=== PATIENT | female | born 1935 | race Caucasian/White ===

== ENCOUNTER 2019-04-28 22:17 | Inpatient (IN) | payer MEDICARE, SELFPAY ==
[2019-04-28] MEDS ORDERED: Ketorolac Tromethamine 30 MG/ML VIAL ONE (22:33)
[2019-04-28] MEDS ORDERED: Potassium Chloride 20 MEQ TAB ONE (22:37)
[2019-04-28] MEDS ORDERED: Clindamycin/D5W 900 MG in Premix Bag 1 BAG IVPB SCH (23:00)
[2019-04-28 23:31] LABS: Lactic Acid 1.3 mmol/L (0.5-2.2)
[2019-04-28] MEDS ORDERED: Ondansetron PF 4 MG/2 ML Vial IVP PRN (23:42)
[2019-04-28] MEDS ORDERED: Ondansetron ODT 4 MG TAB PO PRN (23:42)
[2019-04-29 00:18] VITALS: BMI 24.1
[2019-04-29] MEDS: Acetaminophen 325 MG TAB PO PRN ×2 (00:32→09:19)
[2019-04-29] MEDS: cefTRIAXone\\ROCEPHIN 1 GM in Sodium Chloride 0.9% 100 ML IVPB SCH (00:48)
[2019-04-29 05:44] LABS: #Lymphocytes 1.3 thou/uL (1.20-3.40); #Neutrophils 11.8 thou/uL (1.40-6.50); %Basophils 0.3 % (0.0-1.0); %Eosinophils 0.2 % (0.0-10.0); %Lymphocytes 9.2 % (21.0-51.0); %Monocytes 6.9 % (0.0-10.0); %Neutrophils 83.4 % (42.0-75.0); Hemoglobin 11.4 g/dL (12.0-16.0); Mean Corpuscular HGB CONC 34.3 g/dL (32.0-36.0); Mean Corpuscular Hemoglobin 33.1 pg (27.0-31.0); Mean Corpuscular Volume 96.6 fL (78.0-98.0); Mean Platelet Volume 8.1 fL (7.4-10.4); Platelet Count 165 thou/uL (130-400); RBC Distribution Width 11.5 % (11.5-14.5); Red Blood Cell (RBC) Count 3.45 mill/uL (4.20-5.40); White Blood Cell (WBC) Count 14.2 thou/uL (4.8-10.8)
[2019-04-29 06:05] LABS: Anion Gap 11 mmol/L (10-20); BUN (Urea Nitrogen) 13 mg/dL (9.8-20.1); Calc. Creatinine Clearance 59 mL/min (70-130); Calcium 8.4 mg/dL (7.8-10.44); Carbon Dioxide 22 mmol/L (23-31); Chloride 109 mmol/L (98-107); Estimated GFR-MDRD 81; Glucose 131 mg/dL (83-110); Potassium 4.1 mmol/L (3.5-5.1); Sodium 138 mmol/L (136-145)
--- NOTE | 2019-04-29 06:51 | HP ---
PRIMARY CARE DOCTOR: Alma Streeter MD CODE STATUS: Full code. CHIEF COMPLAINT: Fever. HISTORY OF PRESENT ILLNESS: 83 years old female patient with past medical history of hypothyroidism, endocrine disease, and hypertension, came to the hospital after having fever that started yesterday associated with right side of the face swelling and numbness with no clear triggers, no alleviating factors. Symptom has been present for the past few days, became severe, also associated with an episode of change in mental status and confusion that has self-resolved while in the ER. The symptoms were severe. PAST MEDICAL HISTORY: The patient has a history of hypothyroidism and hypertension. PAST SURGICAL HISTORY: No surgical history. PSYCHIATRIC HISTORY: Includes anxiety and depression. SOCIAL HISTORY: No alcohol, no drugs, no smoking history. FAMILY HISTORY: Reviewed, noncontributory for current presentation. ALLERGIES: NO ALLERGIES REPORTED. REPORTED MEDICATIONS: Please see medication reconciliation for details. PHYSICAL EXAMINATION: VITAL SIGNS: On presentation; blood pressure 150/87, heart rate 107, respiratory rate was 18, temperature 99.8. At some point, the patient had fever. GENERAL APPEARANCE: The patient is alert and oriented, in no acute distress. HEENT: Eyes; normal conjunctivae. Moist oral mucosa. The patient has right-sided swelling of the face and also extending to the submandibular area on the right side. RESPIRATORY: Bilateral air entry. No rales. No wheezes. Symmetric expansion. CARDIOVASCULAR: Normal rate. Regular rhythm. No murmurs. No gallops. No edema. ABDOMEN: Soft. Normal bowel sounds. MUSCULOSKELETAL: Baseline range of motion and strength. SKIN: Warm and intact. No pallor. No rash. No redness. Capillary refill seems to be intact. NEURO: No evidence of any new focal weakness. Cranial nerves seems to be intact. PSYCH: The patient is in good mood. No anxiety. Optimal judgment. DIAGNOSTIC STUDIES: Head CT was done. No acute abnormalities. CT neck with contrast; right-sided facial fat stranding. No evidence of abscess. Chest x-ray was done; the patient has small bilateral pleural effusions, mild cardiomegaly. LABORATORY DATA: Reviewed. The patient has a white count 14.2, hemoglobin 11.4, MCV 96.6. Chemistry; sodium 138, potassium 4.1, chloride 109, carbon dioxide 22, anion gap 11, creatinine 0.69, GFR 81, glucose 131, calcium 9.4. ASSESSMENT AND PLAN: The patient will be placed in the hospital with following medical problems. 1. Sepsis secondary to the patient's cellulitis. The patient has tachycardia and tachypnea and also reportedly fever with leukocytosis. The source is the patient's cellulitis. The patient has been started on broad-spectrum antibiotics and we will continue for now. 2. Hypothyroidism. Continue hormone replacement. 3. Uncontrolled hypertension, systolic blood pressure 150. Reconcile home medications and adjust treatment as needed. 4. Deep venous thrombosis prophylaxis. Job ID: [id number]
[2019-04-29] MEDS ORDERED: Prevnar 13-Val Conj/PF 0.5 ML SYRINGE IM ONE (09:00)
[2019-04-29] MEDS: Enoxaparin Sodium 40 MG/0.4 ML SYRINGE SC SCH ×2 (09:00→09:14)
[2019-04-29] MEDS: Clindamycin/D5W 600 MG in Premix Bag 1 BAG IVPB SCH ×3 (09:01→22:50)
[2019-04-29] MEDS ORDERED: Gadobenate Dimeglumine 529 MG/1 ML (20ML VIAL) ONE (13:07)
[2019-04-29] MEDS ORDERED: Diazepam 2 MG TAB PO PRN (14:27)
[2019-04-29] MEDS: Sodium Chloride 0.9% 1,000 ML IV SCH (15:08)
--- NOTE | 2019-04-29 16:52 | MRI ---
EXAM: MRI of the brain without and with contrast HISTORY: Swelling in the right temporal region since Monday. COMPARISON: None TECHNIQUE: Multiplanar multisequence MR images were obtained of the brain without and with IV contras t. FINDINGS: Scattered foci of high T2/FLAIR signal in the subcortical and periventricular white matter are likely secondary to small vessel ischemic disease. CSF signal intensity in the anterior aspect of the right middle cranial fossa may represent an arachnoid cyst. No restricted diffusion. No abnormal enhancement. No hydronephrosis. No intracranial hemorrhage. The expected flow voids are present. Corpus callosum, pituitary, and craniocervical junction are within normal limits. There is diffuse soft tissue swelling in the right temporal scalp without focal fluid collection or f ocal mass. The calvarium is unremarkable. The paranasal sinuses and mastoid air cells are well aerated. IMPRESSION: 1. There is soft tissue swelling of the right temporal scalp without focal lesion or underlying greg rial abnormality 2. Right middle cranial fossa arachnoid cyst.
[2019-04-29] MEDS: Lisinopril 20 MG TAB PO SCH (20:16)
[2019-04-29] MEDS ORDERED: Vancomycin HCl 1 GM in Premix Bag 1 BAG IVPB SCH (23:00)
[2019-04-30] MEDS: cefTRIAXone\\ROCEPHIN 1 GM in Sodium Chloride 0.9% 100 ML IVPB SCH (01:20)
[2019-04-30] MEDS: Sodium Chloride 0.9% 1,000 ML IV SCH (01:25)
[2019-04-30] MEDS: Acetaminophen 325 MG TAB PO PRN (05:59)
[2019-04-30] MEDS: Enoxaparin Sodium 40 MG/0.4 ML SYRINGE SC SCH ×2 (08:27→08:34)
[2019-04-30] MEDS: Clindamycin/D5W 600 MG in Premix Bag 1 BAG IVPB SCH (08:28)
[2019-04-30] MEDS: Lisinopril 20 MG TAB PO SCH (08:28)
[2019-04-30 08:39] LABS: #Eosinphils 0.1 thou/uL (0.0-0.7); #Lymphocytes 1.8 thou/uL (1.20-3.40); #Monocytes 0.9 thou/uL (0.11-0.59); #Neutrophils 6.8 thou/uL (1.40-6.50); %Basophils 0.5 % (0.0-1.0); %Eosinophils 1.1 % (0.0-10.0); %Lymphocytes 18.3 % (21.0-51.0); %Monocytes 9.4 % (0.0-10.0); %Neutrophils 70.8 % (42.0-75.0); Hemoglobin 11.6 g/dL (12.0-16.0); Mean Corpuscular HGB CONC 34.2 g/dL (32.0-36.0); Mean Corpuscular Hemoglobin 32.7 pg (27.0-31.0); Mean Corpuscular Volume 95.7 fL (78.0-98.0); Mean Platelet Volume 7.5 fL (7.4-10.4); Platelet Count 184 thou/uL (130-400); RBC Distribution Width 11.3 % (11.5-14.5); Red Blood Cell (RBC) Count 3.55 mill/uL (4.20-5.40); White Blood Cell (WBC) Count 9.7 thou/uL (4.8-10.8)
[2019-04-30 09:09] LABS: Anion Gap 11 mmol/L (10-20); BUN (Urea Nitrogen) 10 mg/dL (9.8-20.1); Calc. Creatinine Clearance 67 mL/min (70-130); Calcium 8.3 mg/dL (7.8-10.44); Carbon Dioxide 20 mmol/L (23-31); Chloride 107 mmol/L (98-107); Estimated GFR-MDRD Greater than 90; Glucose 98 mg/dL (83-110); Potassium 3.4 mmol/L (3.5-5.1); Sodium 135 mmol/L (136-145)
[2019-04-30 11:33] VITALS: BP 150/84; TEMP 98.3
--- NOTE | 2019-05-01 00:05 | DIS ---
DATE OF ADMISSION: 04/28/2019 DATE OF DISCHARGE: 04/30/2019 REASON FOR HOSPITALIZATION: Sepsis with right-sided cellulitis of the face. SIGNIFICANT FINDINGS: The patient was found to have cellulitis and sepsis. PROCEDURES PERFORMED/TREATMENTS RENDERED: The patient was admitted to medical floor/surgical unit for close observation. The patient received IV antibiotics, IV fluids, and had blood cultures and urine cultures taken. With maximum medical therapy, the patient's white blood cell count normalized and she returned to her normal state of health. CONDITION ON DISCHARGE: Stable. SPECIFIC INSTRUCTIONS FOR THE PATIENT/FAMILY: 1. The patient is recommended to take all oral antibiotics as directed. 2. The patient is recommended to take probiotic therapy. 3. The patient is recommended to continue all other home medications as directed by primary care physician. 4. The patient is recommended to follow up with primary care physician in the next 5 to 7 days for further plan of care. 5. The patient is to follow up with primary care physician on right side of the face soft tissue swelling over the temporal scalp area that is negative for focal lesion or underlying abscesses. 6. The patient is recommended to return to acute care hospital immediately if signs or symptoms return, worsen, or any other new symptoms occur. DISCHARGE MEDICATIONS: 1. Doxycycline 100 mg one tablet p.o. b.i.d. 2. Lactobacillus one tablet p.o. t.i.d. 3. Amitriptyline 75 mg one tablet p.o. daily. 4. Lisinopril 20 mg one tablet p.o. b.i.d. HOSPITAL COURSE: Ms. Gambino is a very pleasant 83-year-old white female, who was transferred to [facility] on 04/29/2019 with sepsis and right-sided facial cellulitis. The patient was septic on admission and prior to arrival to [place], was acting not herself and confused. The patient was found to have WBC count of 14,000 and tachycardia was diagnosed with sepsis with cellulitis of the face as a source. The patient did have imaging at transfer facility including CAT scan of the head and neck, which demonstrated cellulitis with fat stranding. 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 The patient does have a small rubbery firm nodule that feels like a lymph node on her right temporal area. The patient did have a CAT scan of the head and neck and these were reviewed from transferring facility. With the patient's altered mental status and soft tissue abnormality of the face, an MRI of the brain was warranted for further evaluation and ruling out of critical diseases. The patient had a MRI of the brain, please see full report for details, there are no acute intracranial abnormalities identified. There is no strokes or obvious signs of bleeding or masses. Concerning the patient's cellulitis of the face, there is an area of swelling, though there is no focal fluid collection. No abscess and no obvious masses that can be identified. As the patient's cellulitis has overly improved/resolved since admission, this is likely a lymph node enlargement as she was clearing an infection. I recommended to the patient that further workup if this lymph node does not return to a normal size would include biopsy and this can be done after the patient has finished a course of oral antibiotics to be set up in the outpatient clinic if indicated by primary care physician. I sent a prescription for oral antibiotics to her preferred pharmacy and she ensures me that she will take these medicines to completion. The patient recommended safe for discharge on 04/30/2019 with close followup with primary care physician in the next 5 to 7 days. The patient recommended to return to acute care hospital immediately if signs or symptoms return, worsen, or any other new symptoms occur. Greater than 39 minutes spent coordinating care and discharge process for this patient. Job ID: [id number]
--- NOTE | 2019-05-02 04:41 | PQF ---
[employer] SHIRLEY Castro SHABNAM KEIRA [id number] CLINICAL DOCUMENTATION CLARIFICATION FORM: POST DISCHARGE Addendum to original discharge summary date: ____ Late entry note date: __ DATE: 05-02-2019 ATTN:Keira Simons Please exercise your independent, professional judgment in responding to the clarification form. Clinical indicators are provided on the bottom of this form for your review Please check appropriate box(s): Based on your clinical knowledge kindly identify what the patient actually has. Please check appropriate box(s): [ XX ] Encephalopathy: Type: [ XX ] Acute [ ] Subacute [ ] Chronic Etiology: [ ] Hypertensive [ ] Metabolic [ ] Toxic [ XX ] Septic [ ] Other diagnosis please specify: [ ] Unable to determine For continuity of documentation, please document condition throughout progress notes and discharge summary. Thank You. CLINICAL INDICATORS: ED 04/28 pg1 Primary Diagnosis: Sepsis from facial cellulitis HP 04/[address] Gomez having fever that started yesterday associated with right side face swelling HP 04/[address] Gomez Episode in change in mental status and confusion that has resolved while in the ER. HP 04/[address] Gomez Uncontrolled hypertension, systolic blood pressure 150. DS 04/[address] Quiroz Significant findings: The Patient was found to have cellulitis and sepsis DS 04/[address] Quiroz MRI of the brain there are no intracranial abnormalities identified RISK FACTORS: Dr. Gomez - Hypertension Dr. Gomez- Hypothyroidism Dr. Gomez- Sepsis TREATMENTS: Imaging 04/29- Brain MRI OCT 13- IV fluids OCT 13- Vancomycin Hcl 1 gm IV OCT 13- Clindamycin IV (This form is maintained as a part of the permanent medical record) 2014 [email or web address]. All Rights Reserved [email or web address] [not provided] [email or web address]
== END 2019-04-30 12:33 | disposition home or self-care (01) | DRG 872 ==
LOC: ERS 22:17 → T4-B 23:57
PROVIDERS: ADMIT Hospitalist; ATTEND Hospitalist
DX: A41.9 Sepsis, unspecified organism (principal); L03.211 Cellulitis of face; E03.9 Hypothyroidism, unspecified; I10 Essential (primary) hypertension; F41.9 Anxiety disorder, unspecified; F32.9 Major depressive disorder, single episode, unspecified; E87.6 Hypokalemia; Z79.899 Other long term (current) drug therapy; Z28.21 Immunization not carried out because of patient refusal
CPT/HCPCS: 36415; 70553; 80048; 83605; 85025; 96365; 96375; A9577; J0696; J1650; J1885; J3370; J3490

== ENCOUNTER 2020-10-17 10:08 | Observation (INO) | payer MEDICARE ==
[2020-10-17] MEDS ORDERED: Iopamidol-370 76% 500 ML 1 ML ONE (11:48)
[2020-10-17 11:50] LABS: #Lymphocytes 0.8 thou/uL (1.20-3.40); #Monocytes 0.2 thou/uL (0.11-0.59); %Basophils 0.4 % (0.0-1.0); %Eosinophils 0.3 % (0.0-10.0); %Monocytes 2.3 % (0.0-10.0); Anisocytosis SLIGHT = 6-15 cells (100X) (0-5/hpf); Hemoglobin 13.9 g/dL (12.0-16.0); MDiff Complete? YES; Macrocytosis SLIGHT = 6-15 cells (100X) (0-5/hpf); Mean Corpuscular HGB CONC 35.3 g/dL (32.0-36.0); Mean Corpuscular Hemoglobin 40.4 pg (27.0-31.0); Mean Platelet Volume 7.7 fL (7.4-10.4); Platelet Count 162 thou/uL (130-400); Red Blood Cell (RBC) Count 3.44 mill/uL (4.20-5.40); White Blood Cell (WBC) Count 10.1 thou/uL (4.8-10.8)
[2020-10-17 11:55] LABS: Alkaline Phosphatase 105 U/L (40-110); Calc. Creatinine Clearance 0 mL/min (70-130)
[2020-10-17 11:56] LABS: BUN (Urea Nitrogen) 13 mg/dL (9.8-20.1)
[2020-10-17 11:58] LABS: ALT (SGPT) 11 U/L (8-55); AST (SGOT) 27 U/L (5-34)
[2020-10-17 12:07] LABS: Albumin 4.2 g/dL (3.4-4.8); Anion Gap 16 mmol/L (10-20); Bilirubin, Total 0.9 mg/dL (0.2-1.2); Calcium 9.1 mg/dL (7.8-10.44); Carbon Dioxide 23 mmol/L (23-31); Chloride 104 mmol/L (98-107); Glucose 127 mg/dL (83-110); Potassium 4.8 mmol/L (3.5-5.1); Protein, Total 8.2 g/dL (5.8-8.1); Sodium 138 mmol/L (136-145)
[2020-10-17 12:09] LABS: CKMB 0.4 ng/mL (0-6.6)
[2020-10-17] MEDS ORDERED: Aspirin Chewable 81 MG TAB ONE (12:10)
[2020-10-17] MEDS ORDERED: Acetaminophen 325 MG TAB PO PRN (15:05)
[2020-10-17] MEDS ORDERED: HYDROcodone/Acetaminophen 5/325 mg Tablet PO PRN (15:05)
[2020-10-17] MEDS ORDERED: Ondansetron PF 4 MG/2 ML Vial IVP PRN (15:05)
[2020-10-17] MEDS ORDERED: hydrALAZINE 20 MG/ML VIAL SLOW IVP PRN (15:25)
[2020-10-17 17:36] LABS: Troponin I 0.018 ng/mL (< 0.028)
[2020-10-17 18:30] LABS: Bacteria/HPF 4+ HPF (None Seen); Bilirubin Negative (Negative); Blood, Urine Negative (Negative); Clarity Turbid (Clear); Glucose, Urine (Dipstick) Normal (Negative); Ketone, Urine Negative (Negative); Leukocyte 75 Leu/uL (Negative); Nitrite Negative (Negative); Protein, Urine (Dipstick) 30 mg/dL (Neg-Trace); Specific Gravity, Urine 1.033 (1.002-1.036); Urobilinogen 3 mg/dL (Less than 2); pH, Urine 5.5 (5.0-9.0)
[2020-10-17 18:38] LABS: RBC/HPF 0-3 HPF (0-3); Squamous Epithelial 0-3 HPF (0-3)
[2020-10-17 19:37] VITALS: BMI 25.4
[2020-10-17] MEDS ORDERED: Atorvastatin Calcium 40 MG TAB PO SCH (21:00)
[2020-10-17 21:12] LABS: SARS-CoV-2 PCR by NAA Not Detected (NotDetected)
[2020-10-17 21:38] LABS: Troponin I 0.027 ng/mL (< 0.028)
[2020-10-17] MEDS: Sodium Chloride 0.9% 1,000 ML IV SCH (21:40)
[2020-10-18 04:42] LABS: #Basophils 0.1 thou/uL (0.0-0.2); #Eosinphils 0.1 thou/uL (0.0-0.7); #Lymphocytes 1.8 thou/uL (1.20-3.40); #Monocytes 0.4 thou/uL (0.11-0.59); #Neutrophils 4.1 thou/uL (1.40-6.50); %Eosinophils 1.8 % (0.0-10.0); %Lymphocytes 28.2 % (21.0-51.0); %Neutrophils 63.2 % (42.0-75.0); Hemoglobin 10.9 g/dL (12.0-16.0); Mean Platelet Volume 7.8 fL (7.4-10.4); Platelet Count 134 thou/uL (130-400); RBC Distribution Width 15.2 % (11.5-14.5); Red Blood Cell (RBC) Count 2.86 mill/uL (4.20-5.40); White Blood Cell (WBC) Count 6.5 thou/uL (4.8-10.8)
[2020-10-18 04:44] LABS: Hemoglobin A1c 5.7 % (4.0-6.0)
[2020-10-18 04:59] LABS: Anion Gap 12 mmol/L (10-20); BUN (Urea Nitrogen) 18 mg/dL (9.8-20.1); Calc. Creatinine Clearance 57 mL/min (70-130); Calcium 8.4 mg/dL (7.8-10.44); Carbon Dioxide 20 mmol/L (23-31); Cardiac Risk 4.2 (Less than 4.5); Chloride 111 mmol/L (98-107); Cholesterol 159 mg/dl (< 200 Desired); Glucose 122 mg/dL (83-110); HDL Cholesterol 38 mg/dL (>60 Neg Risk); LDL Cholesterol, Calculated 97 mg/dL; Potassium 3.6 mmol/L (3.5-5.1); Sodium 139 mmol/L (136-145); Triglycerides 122 mg/dL (Less than 150)
[2020-10-18] MEDS: Sodium Chloride 0.9% 1,000 ML IV SCH (05:14)
[2020-10-18] MEDS ORDERED: Aspirin 81 mg Enteric Coated Tablet PO SCH (09:00)
[2020-10-18] MEDS ORDERED: Enoxaparin Sodium 40 MG/0.4 ML SYRINGE SC SCH (09:00)
[2020-10-18] MEDS ORDERED: cefTRIAXone\\ROCEPHIN 1 GM in Sodium Chloride 0.9% 100 ML IVPB SCH (12:00)
[2020-10-18] MEDS ORDERED: Lorazepam 0.5 MG TAB PO PRN (12:28)
[2020-10-18] MEDS ORDERED: Cyanocobalamin 1000 MCG/ML VIAL IM SCH (17:45)
[2020-10-18 18:00] VITALS: BP 177/83; TEMP 98.6
[2020-10-19] MEDS ORDERED: Levothyroxine Sodium 125 MCG TAB PO SCH (06:00)
== END 2020-10-18 18:56 | disposition home or self-care (01) ==
LOC: ERS 10:08 → ERHOLD 14:38 → 2NO 19:24
PROVIDERS: ADMIT Family Medicine; ATTEND Internal Medicine
DX: I95.1 Orthostatic hypotension (principal); N39.0 Urinary tract infection, site not specified; I67.1 Cerebral aneurysm, nonruptured; D51.9 Vitamin B12 deficiency anemia, unspecified; H61.21 Impacted cerumen, right ear; E03.9 Hypothyroidism, unspecified; I10 Essential (primary) hypertension; R29.6 Repeated falls; Z79.899 Other long term (current) drug therapy; Z88.5 Allergy status to narcotic agent; Z20.822 Contact with and (suspected) exposure to COVID-19
CPT/HCPCS: 70450; 70496; 70498; 70551; 80048; 80053; 80061; 82553; 82607; 82746; 83036; 84443; 84484 ×2; 85025 ×2; 93005; 93306; 95712; 95819; 95957; 96372; 96374; 97139; 99285; G0378 ×3; U0003; U0005; 36415; 81003; 81015; 87635; J0696; J1650; J3420; J3490; Q9967

== ENCOUNTER 2023-06-22 10:05 | Outpatient (CLI) | payer OTHER | END 2023-06-22 10:06 | disposition home or self-care (01) | LOC: BICRAD 10:05 | PROVIDERS: ATTEND Podiatrist | DX: L89.90 Pressure ulcer of unspecified site, unspecified stage (principal) ==

== ENCOUNTER 2023-09-07 12:28 | Inpatient (IN) | payer MEDICARE, SELFPAY ==
[2023-09-07 13:38] LABS: #Monocytes 0.6 thou/uL (0.11-0.59); #Neutrophils 12.1 thou/uL (1.40-6.50); %Basophils 0.2 % (0.0-1.0); %Eosinophils 0.1 % (0.0-10.0); %Monocytes 4.6 % (0.0-10.0); %Neutrophils 88.6 % (42.0-75.0); Hematocrit 35.1 % (36.0-47.0); Hemoglobin 12.8 g/dL (12.0-16.0); Mean Corpuscular HGB CONC 36.5 g/dL (32.0-36.0); Mean Corpuscular Hemoglobin 42.1 pg (27.0-31.0); Mean Corpuscular Volume 115.5 fl (78.0-98.0); Mean Platelet Volume 10.7 fL (7.4-10.4); Platelet Count 210 10x3/uL (130-400); Red Blood Cell (RBC) Count 3.04 mill/uL (4.20-5.40); White Blood Cell (WBC) Count 13.6 10x3/uL (4.8-10.8)
[2023-09-07 14:08] LABS: Troponin I 0.097 ng/mL (< 0.028)
[2023-09-07 14:09] LABS: ALT (SGPT) 15 U/L (8-55); AST (SGOT) 22 U/L (5-34); Alkaline Phosphatase 85 U/L (40-110); Anion Gap 15 mmol/L (10-20); BUN (Urea Nitrogen) 9 mg/dL (9.8-20.1); Calc. Creatinine Clearance 0 mL/min (70-130); Calcium 9.1 mg/dL (7.8-10.44); Carbon Dioxide 25 mmol/L (23-31); Chloride 106 mmol/L (98-107); Estimated GFR 83; Globulin 2.8 g/dL (2.4-3.5); Glucose 108 mg/dL (83-110); Potassium 2.7 mmol/L (3.5-5.1); Protein, Total 6.8 g/dL (5.8-8.1); Sodium 143 mmol/L (136-145)
[2023-09-07 14:15] LABS: CellaVision Operator ID LAB.MJL; Macrocytosis SLIGHT = 6-15 cells HPF (0-5); Platelet Adequacy Comment Platelets Normal; Polychromasia SLIGHT = 2-3 cells HPF (0-2)
[2023-09-07] MEDS ORDERED: Potassium Chloride 20 MEQ TAB ONE (14:19)
[2023-09-07] MEDS ORDERED: Iopamidol-370 76% 500 ML MDV (1 ML CHARGE) ONE (14:39)
[2023-09-07] MEDS ORDERED: Cefepime 1 GM VIAL ONE (14:56)
[2023-09-07] MEDS ORDERED: Vancomycin 1 GM/200 ML (FROZEN) BAG ONE (14:56)
[2023-09-07] MEDS ORDERED: Sodium Chloride 0.9% 100 ML ONE (14:56)
[2023-09-07] MEDS ORDERED: Ondansetron PF 4 MG/2 ML Vial IVP PRN (15:10)
[2023-09-07] MEDS ORDERED: Bisacodyl 10 MG SUPP PR PRN ×2 (15:10→15:11)
[2023-09-07] MEDS ORDERED: Acetaminophen 325 MG TAB PO PRN (15:10)
[2023-09-07] MEDS ORDERED: Calcium Carbonate 500 MG ChewTAB PO PRN (15:10)
[2023-09-07] MEDS ORDERED: Guaifenesin DM 100-10/5 ML UDCUP PO PRN (15:10)
[2023-09-07] MEDS ORDERED: Mineral Oil ENEMA PR SCH (15:15)
[2023-09-07] MEDS ORDERED: Polyethylene Glycol 3350 17 GM Packet PO SCH (15:15)
[2023-09-07 17:18] LABS: Bacteria/HPF None Seen HPF (None Seen); Bilirubin Negative (Negative); Blood, Urine Negative (Negative); CAUTI Indications for Culture Pelvic or flank pain; Clarity Clear (Clear); Glucose, Urine (Dipstick) Normal (Negative); Ketone, Urine 20 mg/dL (Negative); Leukocyte Negative Leu/uL (Negative); Nitrite Negative (Negative); Protein, Urine (Dipstick) Negative (Neg-Trace); RBC/HPF 0-3 HPF (0-3); Specific Gravity, Urine 1.022 (1.002-1.036); Squamous Epithelial 0-3 HPF (0-3); Urobilinogen Normal mg/dL (Less than 2); WBC/HPF 0-3 HPF (0-3)
[2023-09-07 17:27] LABS: Urine Culture Reflex No No
[2023-09-07] MEDS: Sodium Chloride 0.9% 1,000 ML IV SCH (18:19)
[2023-09-07] MEDS: cefTRIAXone\\ROCEPHIN 2 GM in Sodium Chloride 0.9% 100 ML IVPB SCH (21:46)
[2023-09-07] MEDS: Potassium Chloride 20 MEQ TAB PO SCH (21:47)
[2023-09-07] MEDS: Famotidine 20 MG TAB PO SCH (21:48)
[2023-09-07] MEDS: Senokot S 8.6-50 MG TAB PO SCH (21:48)
[2023-09-07 21:57] VITALS: BMI 22.6
[2023-09-08] MEDS: Potassium Chloride 20 MEQ TAB PO SCH ×4 (04:17→12:59)
[2023-09-08 04:49] LABS: #Eosinphils 0.1 thou/uL (0.0-0.7); #Monocytes 0.6 thou/uL (0.11-0.59); #Neutrophils 6.2 thou/uL (1.40-6.50); %Basophils 0.3 % (0.0-1.0); %Eosinophils 1.1 % (0.0-10.0); %Lymphocytes 22.1 % (21.0-51.0); %Monocytes 6.2 % (0.0-10.0); Hematocrit 30.4 % (36.0-47.0); Mean Corpuscular HGB CONC 36.2 g/dL (32.0-36.0); Mean Corpuscular Volume 118.8 fl (78.0-98.0); Mean Platelet Volume 10.6 fL (7.4-10.4); Platelet Count 210 10x3/uL (130-400); RBC Distribution Width 13.2 % (11.5-14.5); Red Blood Cell (RBC) Count 2.56 mill/uL (4.20-5.40); White Blood Cell (WBC) Count 8.8 10x3/uL (4.8-10.8)
[2023-09-08] MEDS ORDERED: cloNIDine 0.1 MG TAB PO SCH (05:00)
[2023-09-08] MEDS ORDERED: Electrolyte Replacement Protocol 1 EACH FS SCH (05:00)
[2023-09-08 05:21] LABS: ALT (SGPT) 12 U/L (8-55); AST (SGOT) 19 U/L (5-34); Albumin 3.6 g/dL (3.4-4.8); Alkaline Phosphatase 73 U/L (40-110); Anion Gap 9 mmol/L (10-20); BUN (Urea Nitrogen) 7 mg/dL (9.8-20.1); Bilirubin, Total 1.2 mg/dL (0.2-1.2); Calc. Creatinine Clearance 57 mL/min (70-130); Calcium 8.4 mg/dL (7.8-10.44); Carbon Dioxide 25 mmol/L (23-31); Chloride 109 mmol/L (98-107); Estimated GFR 85; Globulin 2.4 g/dL (2.4-3.5); Glucose 107 mg/dL (83-110); Potassium 2.9 mmol/L (3.5-5.1); Sodium 140 mmol/L (136-145)
[2023-09-08 05:43] LABS: Magnesium 2.1 mg/dL (1.6-2.6)
[2023-09-08] MEDS: Levothyroxine Sodium 125 MCG TAB PO SCH (06:08)
[2023-09-08] MEDS: Sodium Chloride 0.9% 1,000 ML IV SCH (06:09)
[2023-09-08] MEDS: Cyanocobalamin (Vitamin B-12) 1,000 MCG TAB PO SCH (09:08)
[2023-09-08] MEDS: Amitriptyline HCl 25 MG TAB PO SCH (09:08)
[2023-09-08] MEDS: Famotidine 20 MG TAB PO SCH ×2 (09:09→20:46)
[2023-09-08] MEDS: Senokot S 8.6-50 MG TAB PO SCH ×2 (09:09→20:46)
[2023-09-08] MEDS: Enoxaparin 40 MG (0.4 mL) SYRINGE SC SCH (09:09)
[2023-09-08] MEDS: Polyethylene Glycol 3350 17 GM Packet PO SCH (09:09)
[2023-09-08] MEDS: cefTRIAXone\\ROCEPHIN 2 GM in Sodium Chloride 0.9% 100 ML IVPB SCH (20:46)
[2023-09-08] MEDS ORDERED: hydrALAZINE 25 MG TAB PO SCH (21:00)
[2023-09-09] MEDS: Levothyroxine Sodium 125 MCG TAB PO SCH (06:09)
[2023-09-09 07:23] LABS: #Eosinphils 0.3 thou/uL (0.0-0.7); #Monocytes 0.4 thou/uL (0.11-0.59); #Neutrophils 3.1 thou/uL (1.40-6.50); %Basophils 0.5 % (0.0-1.0); %Eosinophils 5.2 % (0.0-10.0); %Lymphocytes 31.1 % (21.0-51.0); %Monocytes 7.2 % (0.0-10.0); %Neutrophils 55.6 % (42.0-75.0); Hematocrit 30.8 % (36.0-47.0); Hemoglobin 10.8 g/dL (12.0-16.0); Mean Corpuscular HGB CONC 35.1 g/dL (32.0-36.0); Mean Corpuscular Hemoglobin 42.7 pg (27.0-31.0); Mean Corpuscular Volume 121.7 fl (78.0-98.0); Mean Platelet Volume 10.7 fL (7.4-10.4); Platelet Count 165 10x3/uL (130-400); RBC Distribution Width 13.2 % (11.5-14.5); Red Blood Cell (RBC) Count 2.53 mill/uL (4.20-5.40); White Blood Cell (WBC) Count 5.5 10x3/uL (4.8-10.8)
[2023-09-09 07:46] LABS: Anion Gap 8 mmol/L (10-20); BUN (Urea Nitrogen) 5 mg/dL (9.8-20.1); Calc. Creatinine Clearance 56 mL/min (70-130); Calcium 8.3 mg/dL (7.8-10.44); Carbon Dioxide 26 mmol/L (23-31); Chloride 110 mmol/L (98-107); Estimated GFR 84; Glucose 95 mg/dL (83-110); Potassium 3.9 mmol/L (3.5-5.1); Sodium 140 mmol/L (136-145)
[2023-09-09] MEDS: Enoxaparin 40 MG (0.4 mL) SYRINGE SC SCH (09:04)
[2023-09-09] MEDS: Famotidine 20 MG TAB PO SCH ×2 (09:05→21:11)
[2023-09-09] MEDS: Senokot S 8.6-50 MG TAB PO SCH ×2 (09:05→21:12)
[2023-09-09] MEDS: Amitriptyline HCl 25 MG TAB PO SCH (09:05)
[2023-09-09] MEDS: Polyethylene Glycol 3350 17 GM Packet PO SCH (09:05)
[2023-09-09] MEDS: Cyanocobalamin (Vitamin B-12) 1,000 MCG TAB PO SCH (09:05)
[2023-09-09] MEDS ORDERED: Lisinopril 20 MG TAB PO SCH (10:30)
[2023-09-09] MEDS ORDERED: hydrALAZINE 25 MG TAB PO SCH (16:00)
[2023-09-09] MEDS: hydrALAZINE 25 MG TAB PO SCH (21:11)
[2023-09-10 05:26] LABS: Free T4 (Free Thyroxine) 1.68 ng/dL (0.70-1.48)
[2023-09-10] MEDS: Levothyroxine Sodium 125 MCG TAB PO SCH (05:40)
[2023-09-10] MEDS: hydrALAZINE 25 MG TAB PO SCH (08:05)
[2023-09-10] MEDS: Famotidine 20 MG TAB PO SCH (08:05)
[2023-09-10] MEDS: Cyanocobalamin (Vitamin B-12) 1,000 MCG TAB PO SCH (08:05)
[2023-09-10] MEDS: Amitriptyline HCl 25 MG TAB PO SCH (08:05)
[2023-09-10] MEDS: Senokot S 8.6-50 MG TAB PO SCH (08:05)
[2023-09-10] MEDS: Polyethylene Glycol 3350 17 GM Packet PO SCH (08:06)
[2023-09-10] MEDS: Enoxaparin 40 MG (0.4 mL) SYRINGE SC SCH (08:06)
[2023-09-10 08:41] VITALS: BP 175/83; TEMP 98.3
[2023-09-10] MEDS ORDERED: hydrALAZINE 25 MG TAB PO SCH (09:00)
[2023-09-10] MEDS ORDERED: Lisinopril 20 MG TAB PO SCH (09:00)
== END 2023-09-10 13:07 | disposition home or self-care (01) | DRG 392 ==
LOC: ERS 12:28 → 2NO 15:10 → MSONC 09-09 20:08
PROVIDERS: ADMIT Internal Medicine; ATTEND Family Medicine
DX: K59.01 Slow transit constipation (principal); N30.00 Acute cystitis without hematuria; E03.9 Hypothyroidism, unspecified; I10 Essential (primary) hypertension; F41.9 Anxiety disorder, unspecified; F32.A Depression, unspecified; E53.8 Deficiency of other specified B group vitamins; E87.6 Hypokalemia; E86.0 Dehydration; Z88.5 Allergy status to narcotic agent; Z79.899 Other long term (current) drug therapy
CPT/HCPCS: 36415; 36416; 74018; 74177; 80048; 80053; 81001; 82607; 83605; 83735; 84439; 84443; 84481; 84484; 85025; 87040; 87086; 93005; 96361; 96365; J0692; J0696; J1650; J3370-JW; J3490; J7050; Q9967